=== PATIENT | female | born 1950 | race Caucasian/White ===

== ENCOUNTER 2020-08-31 12:29 | Outpatient (CLI) | payer MEDICARE, SELFPAY ==
--- NOTE | ~2020-08-31 | MR_ITS ---
EXAMINATION: MR lumbar spine wo con DATE: 08/31/2020 13:28 INDICATION: Chronic low back pain. TECHNIQUE: Magnetic resonance imaging (MRI) of the lumbar spine was performed without intravenous con trast. Sequences included sagittal T2-weighted FSE, sagittal T2-weighted FS FSE, sagittal T1-weighted FSE, and axial T2-weighted FSE. COMPARISON: Lumbar spine MRI 09/19/2014 FINDINGS: There is 10 degrees levoscoliosis of lumbar spine. There is 3 mm anterolisthesis of L3 on L 4. There are Schmorl's nodes at most levels. There is mildly decreased disc height at L1-L2 and sever jackie decreased disc height from L2-L3 through L5-S1 with endplate remodeling. The distal spinal cord s ignal intensity is normal. The conus medullaris is at L1. There is a 9.3 cm cyst in left kidney. The following disc levels are specifically discussed: L1-L2: The disc is bulging with superimposed central extrusion. There is mild lateral facet joint ost eoarthritis. There is mild bilateral neural foraminal stenosis. There is mild central canal stenosis. L2-L3: The disc is bulging. There is moderate bilateral facet joint osteoarthritis. There is moderate bilateral neural foraminal stenosis. There is mild central canal stenosis. L3-L4: The disc is bulging and has an annular fissure. There is severe bilateral facet joint osteoart hritis. There is moderate bilateral neural foraminal stenosis. There is mild central canal stenosis w ith posterior decompression. L4-L5: The disc is bulging and has an annular fissure. There is severe bilateral facet joint osteoart hritis. There is mild right and moderate left neural foraminal stenosis. There is mild central canal stenosis with posterior decompression. L5-S1: The disc is bulging and has an annular fissure. There is moderate bilateral facet joint osteoa rthritis. There is mild right and moderate left neural foraminal stenosis. There is mild central lauro l stenosis. IMPRESSION: 1. Severe lumbar spondylosis, worsened from 09/19/2014. Reviewed, dictated and finalized at location A.
== END 2020-08-31 12:30 | disposition home or self-care (01) ==
PROVIDERS: PCP Physician Assistant; Visit Provider Physician Assistant
DX: M47.896 Other spondylosis, lumbar region (principal)
CPT/HCPCS: 72148

== ENCOUNTER 2020-09-24 09:23 | Outpatient (CLI) | payer MEDICARE, SELFPAY ==
--- NOTE | 2020-09-24 09:46 | ECG_ITS ---
Measurements Intervals [place] Rate: 73 P: 60 IN: 207 QRS: -11 QRSD: 86 T: 11 QT: 350 QTc: 386 Interpretive Statements SINUS RHYTHM DELAYED PRECORDIAL R/S TRANSITION BASELINE ARTIFACT- I, II, III, AVL, AVF BORDERLINE ECG Electronically Signed On 09-24-2020 10:24:52 HAND WINDER by Emanuel Mcgowan D.O.
== END 2020-09-24 09:24 | disposition home or self-care (01) ==
PROVIDERS: PCP Physician Assistant; Visit Provider Physician Assistant
DX: Z01.818 Encounter for other preprocedural examination (principal); R94.31 Abnormal electrocardiogram [ECG] [EKG]
CPT/HCPCS: 93005

== ENCOUNTER → 2021-03-28 06:47 | Outpatient (CLI) | payer MEDICARE, SELFPAY ==
[2021-03-28 17:40] LABS: SARS-CoV-2 RNA PCR Negative
== END ==
PROVIDERS: PCP Internal Medicine; Visit Provider Physician Assistant
DX: Z01.812 Encounter for preprocedural laboratory examination (principal); Z20.822 Contact with and (suspected) exposure to COVID-19
CPT/HCPCS: C9803; U0003; U0005

== ENCOUNTER 2022-02-24 10:37 | Emergency (ER) | payer MEDICARE, SELFPAY ==
[2022-02-24 10:45] VITALS: BP 172/90; PULSE 97; RESP 16; TEMP 36.7; O2SAT 98
--- NOTE | 2022-02-24 10:45 | ED.URI ---
HPI - URI/Sore Throat General Chief Complaint: Upper Respiratory Infection Stated Complaint: Sinus pain, cough Time Seen by Provider: 02/24/22 10:46 Source: patient, RN notes reviewed and old records reviewed Mode of arrival: ambulatory Limitations: no limitations History of Present Illness HPI Narrative: 71 year old female who presents to [facility] care with complaints of cough which has been preventing her from sleeping well at night, sinus congestion and drainage for the past 4 days.Patient states that she has been taking her Zyrtec and using her inhalers and taking Coricidin brand cold medications. Patient reports that she has a lot of drainage in the back of her throat that is aggravating her cough, Patient denies any acute shortness of breath, denies any chills or sweat or any known fevers. Patient does have history of seasonal allergies and asthma. Patient has had COVID vaccinations and flu shot. MD elicited complaint: cough, rhinorrhea and nasal congestion Onset (ago): day(s) (4) Treatments prior to arrival: cold medicine Related Data Home Medications Medication Instructions Recorded Confirmed aspirin 81 mg tablet,delayed 81 mg PO DAILY 06/18/20 02/24/22 release cetirizine 10 mg capsule 10 mg PO DAILY 06/18/20 02/24/22 cranberry extract 500 mg capsule 500 mg PO BID 03/19/21 02/24/22 Black Elderberry 50 mg PO .qd 10/02/21 02/24/22 calcium carbonate 200 mg calcium 200 mg PO BID 02/21/22 02/24/22 (500 mg) chewable tablet glucosamine sulfate 1,000 mg 1,500 mg PO BID cap 02/21/22 02/24/22 capsule oasis eye drops 1 ea EACH EYE TID 02/21/22 02/24/22 acetaminophen [Tylenol Extra 500 mg PO DAILY 02/24/22 02/24/22 Strength] vit C,H-Fn-hnnzt-lutein-zeaxan 1 cap PO BID 02/24/22 02/24/22 [PreserVision AREDS-2] Allergies Allergy/AdvReac Type Severity Reaction Status Date / Time codeine Allergy Mild Nausea Verified 02/24/22 10:51 Review of Systems Review of Systems: CONSTITUTIONAL: Denies fever, chills, or sweats. EYES: Denies visual changes, redness, or discharge. ENT: Positive for rhinorrhea, congestion, no sore throat, or otalgia. CARDIOVASCULAR: Denies chest pain, palpitations, or edema. RESPIRATORY: Positive for cough mild dyspnea with activity. GASTROINTESTINAL: Denies abdominal pain, nausea, vomiting, or diarrhea. GENITOURINARY: Denies dysuria or hematuria. SKIN: Denies rash or itching. MUSCULOSKELETAL: Denies back pain, joint pain, or myalgia. NEUROLOGIC: Denies headache, numbness, or weakness. PSYCHIATRIC: Denies anxiety or depression. All systems reviewed & are unremarkable except as noted in HPI and below PMFSH Past Medical History Medical History Arthritis Chronic back pain CVA (cerebral vascular accident) History of adverse reaction to anesthesia Hypercholesteremia Hypertension Kidney disease Postmenopausal Seasonal allergies Vision abnormalities Surgical History Surgical History H/O Spinal surgery Bulging disc H/O: hysterectomy History of cholecystectomy History of orthopedic surgery Right knee Hx of tonsillectomy Family History Family History Grandparent Hypertension Father Family history of chronic obstructive pulmonary disease Malignant neoplasm of prostate Family history of emphysema Patient's father is Other Arthritis Blood clot in vein Cerebrovascular accident Social History Social History Smoking status: Never smoker Second hand tobacco smoke exposure: No Alcohol intake: current Alcohol use details: Occasional Substance use: never Comments At time of signature, agree with nursing past medical, surgical, social and family history. There is no relevant family history pertinent to the presenting complaint
== END 2022-02-24 11:14 | disposition home or self-care (01) ==
PROVIDERS: Emergency Provider Registered Nurse; PCP Physician Assistant
DX: J06.9 Acute upper respiratory infection, unspecified (principal); M19.90 Unspecified osteoarthritis, unspecified site; E78.00 Pure hypercholesterolemia, unspecified; I10 Essential (primary) hypertension; Z86.73 Personal history of transient ischemic attack (TIA), and cerebral infarction without residual deficits
CPT/HCPCS: 99213; G0463

== ENCOUNTER → 2022-03-28 14:35 | Outpatient (CLI) | payer MEDICARE, SELFPAY ==
--- NOTE | ~2022-03-28 | MR_ITS ---
EXAMINATION: MR lumbar spine wo con DATE: 03/28/2022 15:07 INDICATION: Lumbar radiculopathy TECHNIQUE: Magnetic resonance imaging (MRI) of the lumbar spine was performed without intravenous con trast. Sequences included sagittal T2-weighted FSE, sagittal T2-weighted FS FSE, sagittal T1-weighted FSE, and axial T2-weighted FSE. COMPARISON: 08/31/2020 FINDINGS: Again seen is 10 degrees lumbar levoscoliosis. Straightening of the normal lumbar lordosis. Postopera tive change of prior L2-L4 laminectomies. 2 mm anterolisthesis L3 on L4. 3 mm retrolisthesis L5 on S1 . Vertebral body heights are normal with multiple Schmorl's nodes. Severe disc height loss with assoc iated fibrofatty and fibrovascular degenerative endplate changes at L2-L3 through L5-S1. Moderate dis c height loss at T10-T11 through L1-L2. The conus medullaris terminates at L1-L2. There is normal sig nal in the caudal spinal cord. 11 cm T2 hyperintense cyst at the upper pole the left kidney. Paravert ebral soft tissues are otherwise unremarkable. The following disc levels are specifically discussed: T12-L1: Disc is mildly bulging. There is mild bilateral facet joint osteoarthritis. There is no neura l foraminal stenosis. There is mild central canal stenosis. L1-L2: Disc is bulging with superimposed annular fissure and small central disc extrusion with disc m aterial extending up to 4 mm caudal to the level of the superior endplate of L2. There is mild left a nd moderate right facet joint osteoarthritis. There is mild bilateral neural foraminal stenosis. Ther e is moderate to severe central canal stenosis with no discernible CSF signal surrounding the cauda e quina. L2-L3: Annular fissure with broad-based disc extrusion extending from foraminal zone to foraminal zon e with disc material extending a few millimeters cephalad and caudal to the level of the endplates. T here is moderate bilateral facet joint osteoarthritis. There is moderate bilateral neural foraminal s tenosis. There is mild central canal stenosis with posterior decompression. L3-L4: Annular fissure with disc extrusion extending from foraminal zone to foraminal zone with disc material extending up to 4 mm cephalad to the level of the inferior endplate of L3. There is severe b ilateral facet joint osteoarthritis. There is moderate bilateral neural foraminal stenosis. There is mild central canal stenosis with posterior decompression. L4-L5: Disc is mildly bulging with annular fissure and small central disc extrusion. There is severe bilateral facet joint osteoarthritis. There is moderate left and mild to moderate right neural forami nal stenosis. There is mild central canal stenosis with posterior decompression. L5-S1: Disc is mildly bulging with annular fissure. There is moderate bilateral facet joint osteoarth ritis. There is mild right and moderate left neural foraminal stenosis. There is mild central canal s tenosis. IMPRESSION: 1. Minimal progression of severe lumbar spondylosis with chronic L2-L4 laminectomies. Reviewed, dictated and finalized at location B. IMPRESSION: 1. Minimal progression of severe lumbar spondylosis with chronic L2-L4 laminect omies.
--- NOTE | ~2022-03-28 | XR_ITS ---
XR knee RT 2V 03/28/2022 15:17 Indication: Right knee pain Procedure: 2 views right knee Comparison: 06/18/2020 Findings: There is a right total knee arthroplasty. Prosthesis well seated. No acute fracture or trau matic malalignment. No significant joint effusion. Impression: 1: No acute fracture. Reviewed, dictated and finalized at location A. Impression: 1: No acute fracture.
--- NOTE | ~2022-03-28 | XR_ITS ---
XR knee LT 2V 03/28/2022 15:17 Indication: Left knee pain Procedure: 2 views left knee Comparison: 06/18/2020 Findings: There is mild osteoarthritis of the left knee. No fracture, subluxation or dislocation. No significant joint effusion. No foreign bodies. Impression: 1: Mild osteoarthritis of the left knee. Reviewed, dictated and finalized at location A. Impression: 1: Mild osteoarthritis of the left knee.
== END ==
PROVIDERS: PCP Internal Medicine; Visit Provider Nurse Practitioner Family
DX: M47.27 Other spondylosis with radiculopathy, lumbosacral region (principal); M48.07 Spinal stenosis, lumbosacral region; M17.0 Bilateral primary osteoarthritis of knee
CPT/HCPCS: 72148; 73560

== ENCOUNTER 2022-07-25 13:07 | Outpatient (CLI) | payer MEDICARE, SELFPAY ==
--- NOTE | 2022-07-25 13:26 | ECG_ITS ---
Measurements Intervals [place] Rate: 77 P: 63 MI: 206 QRS: -18 QRSD: 120 T: 37 QT: 359 QTc: 409 Interpretive Statements SINUS RHYTHM BORDERLINE AV CONDUCTION DELAY BORDERLINE ECG COMPARED TO ECG 09/24/2020 09:50:35 NO SIGNIFICANT CHANGES Electronically Signed On 07-25-2022 13:47:40 CDT by Emanuel Mcgowan D.O.
== END 2022-07-25 13:08 | disposition home or self-care (01) ==
LOC: ANHCARD 13:09
PROVIDERS: PCP Physician Assistant; Visit Provider Neurological Surgery
DX: Z01.818 Encounter for other preprocedural examination (principal); I45.9 Conduction disorder, unspecified
CPT/HCPCS: 93005

== ENCOUNTER 2022-08-20 08:34 | Outpatient (CLI) | payer MEDICARE, SELFPAY ==
[2022-08-20 09:18] LABS: Anion Gap 7 mmol/L (8-16); Blood Urea Nitrogen 21 mg/dL (7-17); Calcium 9.7 mg/dL (8.4-10.2); Carbon Dioxide 28 mmol/L (22-30); Chloride 100 mmol/L (98-107); Estimated Glomerular Filt Rate 44; Glucose 112 mg/dL (65-110); Potassium 5.2 mmol/L (3.4-5.0); Sodium 135 mmol/L (137-145)
[2022-08-20 09:33] LABS: Partial Thromboplastin Time 27.5 SECONDS (22.3-36.8)
== END 2022-08-20 08:35 | disposition home or self-care (01) ==
LOC: ANHSURGERY 08:37
PROVIDERS: Anesthesiology; PCP Physician Assistant; Visit Provider Neurological Surgery
DX: M48.00 Spinal stenosis, site unspecified (principal); N28.9 Disorder of kidney and ureter, unspecified; Z01.818 Encounter for other preprocedural examination
CPT/HCPCS: 36415; 80048; 85610; 85730; 86850; 86900; 86901

== ENCOUNTER 2022-08-25 01:45 | Day surgery (SDC) | payer MEDICARE, SELFPAY ==
[2022-08-13 09:48] VITALS: BMI 31.2
--- NOTE | 2022-08-13 10:20 | PC.NURSE ---
Report to the Outpatient Waiting Room, entrance under the green pavilion located off [facility], at time __10:30AM on date __08/25/22 . OR Time: _12:30PM . Time changes happen often and if your time is changed the preop area will call you the afternoon before. - You and your visitor will be asked to self-screen and do not enter if you have any COVID symptoms. - We encourage only one visitor and NO visitors under age 16 are allowed at this time. Your visitor will receive communication by the phone number that is given day of service. - The patient visitor is requested to social distance or may leave the building when not with patient due to restrictions. - A mask is required within the hospital. Patients may have clear liquids (water, carbonated beverages, clear teas, apple juice) until 3 hours prior to surgery with a maximum of 20 ounces. - No food from midnight until time of surgery Take the following medications with a SIP of water the morning of surgery: __AMLODIPINE, SYMBICORT INH, ALBUTEROL INHALER NEEDED Medications to discontinue per physician ___HOLD ASPIRIN AND ALL VITAMINS/SUPPLEMENTS 7 DAYS PRE-OP PER DR PEÑA/FELIPA PT Date to take last dose____08/18/22 Please no make-up, nail english, hairspray, perfume, deodorant, or body powder the day of surgery. No jewelry (including any body piercings) or valuables the day of surgery, leave them at home. Please take a shower or bath the night before, or the morning of, surgery with an antibacterial soap. Wear comfortable, loose fitting clothing. Children are encouraged to wear pajamas. - Jewelry must be removed prior to entering the operating room. Rings and piercings that are not removed may be cut off. - The hospital will not accept responsibility for valuables. - Please leave all valuables, including medications, at home the day of surgery. If you are going home after surgery, a licensed local driver must drive you home. - NO public transportation without another adult. - We recommend that an adult stay with you for 24 hours following discharge. - We also recommend that you do not drive, make important decision, drink alcoholic beverages, or take any drugs that were not prescribed by your health care provider for at least 24 hours after your discharge time. For Pediatric surgeries, we recommend two adults accompany the child home. Follow any additional instructions given to you from your surgeon. If you or anyone in your household have experienced Covid symptoms in the past week, please notify your surgeon or the nurse liaison at the phone number below for possible testing. Telephone instructions given to ___PATIENT and asked if any additional questions and then verbalized understanding. Patient advised to call surgeon office or pre surgery nurse liaison [phone] if any additional questions.
[2022-08-25] VITALS (8 sets, daily range): BP systolic 132–154; BP diastolic 57–79; PULSE 63–87; RESP 12–17; TEMP 36.3–36.7; O2SAT 100; BMI 31.6
--- NOTE | ~2022-08-25 | XR_ITS ---
XR fluoroscopy no charge L1-L2 lumbar laminectomy TECHNIQUE: Fluoroscopy used during L1-L2 lumbar laminectomy performed by [Todd Pina MD] on 08/25/2022. 5 seconds of fluoroscopy. with 2 fluoroscopic images captured. ] FINDINGS: Correlate with procedure note. IMPRESSION: Fluoroscopy used during L1-L2 lumbar laminectomy. Reviewed, dictated and finalized at location B.
--- NOTE | 2022-08-25 09:41 | WPDANESEPPF ---
Anes - Initial Pre Proc Eval Procedure: Operation Date: 08/25/22 12:30 Proposed Procedures p L1-2 Lumbar Laminectomy - Todd Pina MD Date/Time: 08/25/22 09:41 Surgeon: Todd Pina MD Pre Op Diagnosis: L1-2 stenosis Patient Data Age: 72 Gender: F Height: 1.6 m Weight: 80 kg Allergies Allergy/AdvReac Type Severity Reaction Status Date / Time codeine AdvReac Mild Nausea Verified 08/25/22 10:51 Home Medications Medication Instructions Recorded Confirmed Type fluticasone propionate 50 1 spray intranasal DAILY #18.2 mL 10/19/19 08/13/22 Rx mcg/actuation nasal spray,suspension (Flonase Allergy Relief) albuterol sulfate 90 mcg/actuation 2 puff inhalation QID PRN 11/22/19 08/13/22 Rx aerosol inhaler (Ventolin HFA) shortness of breath or wheezing #8.5 grams budesonide-formoterol HFA 160 2 puff inhalation Q12H #10.2 grams 11/23/19 08/13/22 Rx mcg-4.5 mcg/actuation aerosol inhaler (Symbicort) aspirin 81 mg tablet,delayed 81 mg PO DAILY 06/18/20 08/25/22 History release (Adult Aspirin Regimen) cetirizine 10 mg capsule 10 mg PO DAILY 06/18/20 08/13/22 History cranberry extract 500 mg capsule 500 mg PO DAILY 03/19/21 08/25/22 History (Cranberry Concentrate) glucosamine sulfate 1,000 mg 1,500 mg PO EVERY OTHER DAY 02/21/22 08/13/22 History capsule oasis eye drops 1 ea EACH EYE BID 02/21/22 08/13/22 History acetaminophen 500 mg capsule 500 mg PO TID PRN Pain 02/24/22 08/13/22 History vit C 250 mg-vit E 90 mg-zinc 40 1 cap PO BID 02/24/22 08/25/22 History mg-copper 1 as-rcalum-washsq capsule (PreserVision AREDS-2) amlodipine 5 mg tablet 5 mg PO DAILY #90 tabs 06/30/22 08/25/22 Rx atorvastatin 10 mg tablet 10 mg PO DAILY #90 tabs 06/30/22 08/13/22 Rx lisinopril 40 mg tablet 40 mg PO DAILY #90 tabs 06/30/22 08/13/22 Rx famotidine 20 mg tablet 20 mg PO BID 08/13/22 08/13/22 History vitamin C 45 mg-zinc citrate 3.75 1 tablet PO DAILY 08/13/22 08/25/22 History mg-elderberry 50 mg chewable tablet ([employer]) ECG: Date of Service: 07/25/22 Procedure(s): CA 12 lead EKG Accession Number(s): [id number] cc: ~ ? Measurements Intervals? [place]? Rate: ? 77 ? P:? 63 ME: ? 206? QRS:? -18 QRSD: ? 120? T:? 37 QT: ? 359? QTc:? 409? Interpretive Statements SINUS RHYTHM BORDERLINE AV CONDUCTION DELAY BORDERLINE ECG COMPARED TO ECG 09/24/2020 09:50:35 NO SIGNIFICANT CHANGES Electronically Signed On 07-25-2022 13:47:40 CDT by Emanuel Mcgowan D.O. Patient hx anesthesia problems: none Family hx anesthesia problems: none Results Review: All pre-operative results and documents have been reviewed as part of the pre-operative evaluation. [facility] Past Medical History Medical History (Updated 08/25/22 @ 09:42 by Orville Correa MD) Arthritis Asthma Chronic back pain CVA (cerebral vascular accident) History of adverse reaction to anesthesia Hypercholesteremia Hyperlipidemia Hypertension Kidney disease Obesity (BMI 30-39.9) Postmenopausal Seasonal allergies Vision abnormalities Surgical History Surgical History H/O Spinal surgery Bulging disc H/O: hysterectomy History of cholecystectomy History of orthopedic surgery Right knee Hx of tonsillectomy Family History Family History Grandparent Hypertension Father Family history of chronic obstructive pulmonary disease Malignant neoplasm of prostate Family history of emphysema Patient's father is Other Arthritis Blood clot in vein Cerebrovascular accident Social Hi
[2022-08-25] MEDS: LACTATED RINGERS 1,000 ML 30 ML IV CONT (11:55)
--- NOTE | 2022-08-25 12:30 | PM.IMHP ---
H&P: HPI History of Present Illness Date/Time: 08/25/22 12:30 Chief Complaint: Back and leg pain, claudication Narrative: Faiza is a 72-year-old female with claudicatory symptoms in her back and lower extremities who presents now for decompression at L1-2. She has not changed appreciably since we saw her last. She does not have consistent numbness or weakness of either lower extremity. She is not having any bowel or bladder difficulty. Review of Systems Review of Systems: Patient denies shortness of breath, cough, fever, chills, nausea, vomiting, weight loss, weight gain, chest pain, dysuria. She has back and leg pain as above. Her review of systems otherwise negative on 12 systems except as noted elsewhere. [facility] Past Medical History Medical History (Updated 08/25/22 @ 12:31 by Todd Pina MD) Arthritis Asthma Chronic back pain CVA (cerebral vascular accident) History of adverse reaction to anesthesia Hypercholesteremia Hyperlipidemia Hypertension Kidney disease Obesity (BMI 30-39.9) Postmenopausal Seasonal allergies Vision abnormalities Surgical History Surgical History H/O Spinal surgery Bulging disc H/O: hysterectomy History of cholecystectomy History of orthopedic surgery Right knee Hx of tonsillectomy Family History Family History Grandparent Hypertension Father Family history of chronic obstructive pulmonary disease Malignant neoplasm of prostate Family history of emphysema Patient's father is Other Arthritis Blood clot in vein Cerebrovascular accident Social History Social History Smoking status: Never smoker Second hand tobacco smoke exposure: No Alcohol intake: current Alcohol use details: Occasional Substance use: never Living arrangements: with family Additional living arrangements comments: [facility] Spiritual care concerns: No Meds Home Medications and Allergies Home Medications Medication Instructions Recorded Confirmed Type fluticasone propionate 50 1 spray intranasal DAILY #18.2 mL 10/19/19 08/13/22 Rx mcg/actuation nasal spray,suspension (Flonase Allergy Relief) albuterol sulfate 90 mcg/actuation 2 puff inhalation QID PRN 11/22/19 08/13/22 Rx aerosol inhaler (Ventolin HFA) shortness of breath or wheezing #8.5 grams budesonide-formoterol HFA 160 2 puff inhalation Q12H #10.2 grams 11/23/19 08/13/22 Rx mcg-4.5 mcg/actuation aerosol inhaler (Symbicort) aspirin 81 mg tablet,delayed 81 mg PO DAILY 06/18/20 08/25/22 History release (Adult Aspirin Regimen) cetirizine 10 mg capsule 10 mg PO DAILY 06/18/20 08/13/22 History cranberry extract 500 mg capsule 500 mg PO DAILY 03/19/21 08/25/22 History (Cranberry Concentrate) glucosamine sulfate 1,000 mg 1,500 mg PO EVERY OTHER DAY 02/21/22 08/13/22 History capsule oasis eye drops 1 ea EACH EYE BID 02/21/22 08/13/22 History acetaminophen 500 mg capsule 500 mg PO TID PRN Pain 02/24/22 08/13/22 History vit C 250 mg-vit E 90 mg-zinc 40 1 cap PO BID 02/24/22 08/25/22 History mg-copper 1 ly-bueede-rslfnq capsule (PreserVision AREDS-2) amlodipine 5 mg tablet 5 mg PO DAILY #90 tabs 06/30/22 08/25/22 Rx atorvastatin 10 mg tablet 10 mg PO DAILY #90 tabs 06/30/22 08/13/22 Rx lisinopril 40 mg tablet 40 mg PO DAILY #90 tabs 06/30/22 08/13/22 Rx famotidine 20 mg tablet 20 mg PO BID 08/13/22 08/13/22 History vitamin C 45 mg-zinc citrate 3.75 1 tablet PO DAILY 08/13/22 08/25/22 History mg-elderberry 50 mg chewable tablet ([employer]) Allergies Allergy/AdvReac Type Severity Reaction Status Date / Time codeine AdvReac Mild Nausea Verified 08/25/22 10:51 Vital Signs Vital Signs - 24 hr 08/25/22 10:45 Temperature 98.1 F Pulse Rate 83 Respiratory Rate 16
--- NOTE | 2022-08-25 12:32 | WPDHPUPDATE1 ---
History and Physical Update Update Date/Time: 08/25/22 12:32 History and Physical has been reviewed, including an updated exam of the patient. There are NO changes in the patient's condition. Risks, benefits, and alternatives have been discussed and questions answered. Patient agrees to proceed with procedure.
[2022-08-25] MEDS: ceFAZolin 2 GM/D5W 50 ML 2 GM/50 ML BAG IVPB (12:38)
[2022-08-25] MEDS: BUPIVACAINE/EPINEPHRINE 0.25% 50 ML VIAL 10 ML INFILTRATE (13:18)
--- NOTE | 2022-08-25 13:49 | P.OP_ITS ---
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 Description of Procedure Faiza was brought to the operating room in the supine position, was sedated, intubated and placed under general anesthesia in routine fashion. She was then turned into the prone position on a Salas frame. Therefore operation or back was examined, marked for incision, prepped and draped in routine sterile fashion. Incision was marked over the L1 and L2 spinous processes in the midline. This area was injected with 0.5% lidocaine with [id number] epinephrine. Intravenous antibiotics given prior to incision. Incision was made with a 10 blade scalpel down to the lumbodorsal fascia. A subperiosteal dissection of the muscle soft tissue away from spinous process and lamina was performed with a subperiosteal elevator and Bovie cautery. A verifying x-rays obtained to verify the level of operation. The L1 spinous process was removed with the Sahra rongeur. A Midas Jorden drill with the acorn bit was used to remove lamina in the midline and to the soft contents of the canal were encountered. A curved curette was used to define a plane and Kerrison punches were used to remove bone and ligament in the midline until the dura was uncovered. In the lateral epidural space a curved curette was used to define a plane and Kerrison punches were used to remove overgrown bone ligament. This was done until a dental instrument could be placed in the lateral recess to confirm microdecompression and feel each pedicle and foramen. The wound was then copiously irrigated with bacitracin irrigation all bleeding stopped with bipolar and Bovie cautery and Gelfoam thrombin powder. The wound was then closed in layered fashion with 2-0 Vicryl interrupted sutures in the lumbodorsal fascia and Erik's layer. 3-0 Vicryl buried interrupted sutures were placed in the dermis and the skin was closed with a running 4-0 Monocryl subcuticular stitch and dressed with Dermabond and a Telfa and Tegaderm dressing. The patient was then allowed to wake up in the operating room was taken to the recovery room in stable condition. There were no immediate complications of this operation. All counts were reported correct at the end of the case. Blood loss was 10 cc. The patient was neurologically at her baseline postoperatively. Estimated Blood Loss 10 IV Fluids 1,000 Complications None Disposition PACU
[2022-08-25] MEDS: fentaNYL CITRATE INJ (*CRX) 100 MCG/2 ML VIAL 25 MCG IV PUSH ×2 (14:23→14:26)
== END 2022-08-25 16:00 | disposition home or self-care (01) ==
PROVIDERS: PCP Physician Assistant; Visit Provider Neurological Surgery
PROC: (CPT 63005; principal; 2022-08-25 12:30)
DX: M48.062 Spinal stenosis, lumbar region with neurogenic claudication (principal); I10 Essential (primary) hypertension; E78.5 Hyperlipidemia, unspecified; E78.00 Pure hypercholesterolemia, unspecified; J45.909 Unspecified asthma, uncomplicated; Z86.73 Personal history of transient ischemic attack (TIA), and cerebral infarction without residual deficits; E66.9 Obesity, unspecified; Z68.31 Body mass index [BMI] 31.0-31.9, adult; Z79.51 Long term (current) use of inhaled steroids
CPT/HCPCS: 63030; 36415; 80048; 85610; 85730; 86850; 86900; 86901; 99199; J0690; J1100; J2405; J2704; J3010; J7120

== ENCOUNTER 2023-06-09 00:45 | Day surgery (SDC) | payer MEDICARE, SELFPAY ==
[2023-06-01 10:16] VITALS: BMI 31.0
[2023-06-09 08:04] VITALS: BP 178/74; PULSE 85; RESP 18; TEMP 36.1; O2SAT 100
--- NOTE | 2023-06-09 08:12 | WPDANESEPPF ---
Anes - Initial Pre Proc Eval Procedure: Operation Date: 06/09/23 09:15 Proposed Procedures p Colonoscopy - Crispin Arevalo MD Date/Time: 06/09/23 08:12 Surgeon: Crispin Arevalo MD Pre Op Diagnosis: other fecal abnormalities Patient Data Age: 73 Gender: F Height: 1.6 m Weight: 79.6 kg Last Vital Signs Temp 36.1 C L 06/09/23 08:04 Pulse 85 06/09/23 08:04 Resp 18 06/09/23 08:04 BP 178/74 H 06/09/23 08:04 Pulse Ox 100 06/09/23 08:04 O2 Del Method Room Air 06/09/23 08:04 Allergies Allergy/AdvReac Type Severity Reaction Status Date / Time codeine AdvReac Mild Nausea Verified 06/09/23 08:01 Home Medications Medication Instructions Recorded Confirmed Type fluticasone propionate 50 1 spray intranasal DAILY #18.2 mL 10/19/19 06/01/23 Rx mcg/actuation nasal spray,suspension (Flonase Allergy Relief) albuterol sulfate 90 mcg/actuation 2 puff inhalation QID PRN 11/22/19 06/01/23 Rx aerosol inhaler (Ventolin HFA) shortness of breath or wheezing #8.5 grams budesonide-formoterol HFA 160 2 puff inhalation Q12H #10.2 grams 11/23/19 06/01/23 Rx mcg-4.5 mcg/actuation aerosol inhaler (Symbicort) aspirin 81 mg tablet,delayed 81 mg PO DAILY 06/18/20 06/01/23 History release (Adult Aspirin Regimen) cetirizine 10 mg capsule 10 mg PO DAILY 06/18/20 06/01/23 History cranberry extract 500 mg capsule 500 mg PO DAILY 03/19/21 06/01/23 History (Cranberry Concentrate) oasis eye drops 1 ea EACH EYE BID 02/21/22 06/01/23 History acetaminophen 500 mg capsule 500 mg PO TID PRN Pain 02/24/22 06/01/23 History vit C 250 mg-vit E 90 mg-zinc 40 1 cap PO BID 02/24/22 06/01/23 History mg-copper 1 [id number]-aiceur capsule (PreserVision AREDS-2) amlodipine 5 mg tablet 5 mg PO DAILY #90 tabs 06/30/22 06/01/23 Rx atorvastatin 10 mg tablet 10 mg PO DAILY #90 tabs 06/30/22 06/01/23 Rx famotidine 20 mg tablet 20 mg PO BID 08/13/22 06/01/23 History vitamin C 45 mg-zinc citrate 3.75 1 tablet PO DAILY 08/13/22 06/01/23 History mg-elderberry 50 mg chewable tablet ([employer]) hydrocodone 5 mg-acetaminophen 325 1 tablet PO Q8H PRN Pain 04/22/23 06/01/23 History mg tablet lisinopril 40 mg tablet 40 mg PO DAILY #90 tabs 05/07/23 06/01/23 Rx sodium,potassium,mag sulfates 17.5 See Rx Instructions PO .COMPLEX 05/11/23 Rx gram-3.13 gram-1.6 gram oral soln #354 mL (Suprep Bowel Prep Kit) docusate sodium 100 mg capsule 100 mg PO BID 06/01/23 06/01/23 History (Colace) Patient hx anesthesia problems: post op nausea/vomiting Family hx anesthesia problems: none Results Review: All pre-operative results and documents have been reviewed as part of the pre-operative evaluation. [facility] Past Medical History Medical History Arthritis Asthma Chronic back pain CVA (cerebral vascular accident) History of adverse reaction to anesthesia Hypercholesteremia Hyperlipidemia Hypertension Kidney disease Obesity (BMI 30-39.9) Postmenopausal Seasonal allergies Vision abnormalities Surgical History Surgical History H/O Spinal surgery Bulging disc H/O: hysterectomy History of cholecystectomy History of orthopedic surgery Right knee Hx of tonsillectomy Family History Family History Grandparent Hypertension Father Family history of chronic obstructive pulmonary disease Malignant neoplasm of prostate Family history of emphysema Patient's father is Other Arthritis Blood clot in vein Cerebrovascular accident Social History Social History Smoking status: Never smoker Second hand tobacco smoke exposure: No Alcohol intake: current Alcohol use details: Occasional Substance use: never Lack of Transporta
[2023-06-09] MEDS: LACTATED RINGERS 1,000 ML 150 ML IV CONT (08:15)
--- NOTE | 2023-06-09 08:52 | PM.HPGS ---
History of Present Illness History of Present Illness Consent: Risks, benefits, and alternatives have been discussed and questions answered. Patient agrees to proceed with procedure. Chief complaint: positive cologuard test Narrative: Faiza Castillo is a 73 year old female Presents for screening colonoscopy. Patient recently had a Cologuard test that was found to be positive. Patient reports her current weight appetite and bowel movements are normal. Patient denies abdominal pain. She has had no bleeding. Family history noncontributory. Review of Systems Review of Systems: Review of systems noncontributory. [facility] Past Medical History Medical History Arthritis Asthma Chronic back pain CVA (cerebral vascular accident) History of adverse reaction to anesthesia Hypercholesteremia Hyperlipidemia Hypertension Kidney disease Obesity (BMI 30-39.9) Postmenopausal Seasonal allergies Vision abnormalities Surgical History Surgical History H/O Spinal surgery Bulging disc H/O: hysterectomy History of cholecystectomy History of orthopedic surgery Right knee Hx of tonsillectomy Family History Family History Grandparent Hypertension Father Family history of chronic obstructive pulmonary disease Malignant neoplasm of prostate Family history of emphysema Patient's father is Other Arthritis Blood clot in vein Cerebrovascular accident Social History Social History Smoking status: Never smoker Second hand tobacco smoke exposure: No Alcohol intake: current Alcohol use details: Occasional Substance use: never Lack of Transportation: No Lack of Food: Never True Current Housing: I Have Housing Concerned About Future Housing: No Difficulty Paying Gas/Electric Bills: No Difficulty Paying for Meds: No Currently Unemployed: No Education: Bachelor's Degree Difficulty w/ Childcare or Family Care: No Living arrangements: with family Additional living arrangements comments: [facility] Gender identity (if verbalized by the patient): Female Spiritual care concerns: No Meds Home Medications and Allergies Home Medications Medication Instructions Recorded Confirmed Type fluticasone propionate 50 1 spray intranasal DAILY #18.2 mL 10/19/19 06/01/23 Rx mcg/actuation nasal spray,suspension (Flonase Allergy Relief) albuterol sulfate 90 mcg/actuation 2 puff inhalation QID PRN 11/22/19 06/01/23 Rx aerosol inhaler (Ventolin HFA) shortness of breath or wheezing #8.5 grams budesonide-formoterol HFA 160 2 puff inhalation Q12H #10.2 grams 11/23/19 06/01/23 Rx mcg-4.5 mcg/actuation aerosol inhaler (Symbicort) aspirin 81 mg tablet,delayed 81 mg PO DAILY 06/18/20 06/01/23 History release (Adult Aspirin Regimen) cetirizine 10 mg capsule 10 mg PO DAILY 06/18/20 06/01/23 History cranberry extract 500 mg capsule 500 mg PO DAILY 03/19/21 06/01/23 History (Cranberry Concentrate) oasis eye drops 1 ea EACH EYE BID 02/21/22 06/01/23 History acetaminophen 500 mg capsule 500 mg PO TID PRN Pain 02/24/22 06/01/23 History vit C 250 mg-vit E 90 mg-zinc 40 1 cap PO BID 02/24/22 06/01/23 History mg-copper 1 [id number] capsule (PreserVision AREDS-2) amlodipine 5 mg tablet 5 mg PO DAILY #90 tabs 06/30/22 06/01/23 Rx atorvastatin 10 mg tablet 10 mg PO DAILY #90 tabs 06/30/22 06/01/23 Rx famotidine 20 mg tablet 20 mg PO BID 08/13/22 06/01/23 History vitamin C 45 mg-zinc citrate 3.75 1 tablet PO DAILY 08/13/22 06/01/23 History mg-elderberry 50 mg chewable tablet ([employer]) hydrocodone 5 mg-acetaminophen 325 1 tablet PO Q8H PRN Pain 04/22/23 06/01/23 History mg tablet lisinopril 40 mg tablet 40
[2023-06-09] MEDS: SIMETHICONE ORAL SUSPENSION 20 MG/0.3 ML 30 ML BOTTLE 0.6 ML IRRIGATION (09:44)
[2023-06-09 09:53] VITALS: BP 128/59; PULSE 72; RESP 19; O2SAT 100
[2023-06-09 10:03] VITALS: BP 128/61; PULSE 67; RESP 20; O2SAT 100
[2023-06-09 10:13] VITALS: BP 130/67; PULSE 65; RESP 18; O2SAT 100
== END 2023-06-09 10:20 | disposition home or self-care (01) ==
PROVIDERS: PCP Physician Assistant; Visit Provider Internal Medicine Gastroenterology
PROC: 0DJD8ZZ Inspection of Lower Intestinal Tract, Via Natural or Artificial Opening Endoscopic (ICD-10-PCS; CPT 45378; principal; 2023-06-09 09:15)
DX: Z12.11 Encounter for screening for malignant neoplasm of colon (principal); R19.5 Other fecal abnormalities; K64.8 Other hemorrhoids; K57.30 Diverticulosis of large intestine without perforation or abscess without bleeding; I10 Essential (primary) hypertension; E78.00 Pure hypercholesterolemia, unspecified; J45.909 Unspecified asthma, uncomplicated; Z86.73 Personal history of transient ischemic attack (TIA), and cerebral infarction without residual deficits; Z79.51 Long term (current) use of inhaled steroids; Z79.82 Long term (current) use of aspirin; E66.9 Obesity, unspecified; Z68.31 Body mass index [BMI] 31.0-31.9, adult
CPT/HCPCS: G0121; J2704; J7120

== ENCOUNTER → 2023-08-03 11:06 | Outpatient (CLI) | payer MEDICARE, SELFPAY ==
--- NOTE | ~2023-08-03 | DEXA_ITS ---
Bone Density Report Name: ROSSY ACEVEDO Age: 73 Sex: Female Ethnicity: White Date of : 1950 Indication: postmenopausal; screening for osteoporosis; height loss; asthma or emphysema; hysterectomy; Referring Provider: Michele Fraga Study: Bone densitometry was performed. Exam Date: August 03, 2023 Accession number: [id number] Bone Density: Region BMD T-score Z-score Classification AP Spine (L1-L4) 1.283 2.1 4.6 Normal Femoral Neck (Left) 0.862 0.1 2.2 Normal Total Hip (Left) 1.036 0.8 2.6 Normal Femoral Neck (Right) 0.799 -0.4 1.6 Normal Total Hip (Right) 0.910 -0.3 1.5 Normal Total Hip Mean 0.973 0.3 2.1 Normal World Health Organization criteria for BMD impression classify patients as: Normal (T-score at or above -1.0), Osteopenia (T-score between -1.0 and -2.5), or Osteoporosis (T-score at or below -2.5). 10-year Fracture Risk: FRAX not reported because: All T-scores for Spine Total, Hip Total, Femoral Neck at or above -1.0 Previous Exams: Region Exam Age BMD T-score BMD Change BMD Change Date g/cm2 vs Baseline vs Previous AP Spine(L1-L4) 08/03/2023 73 1.283 2.1 -0.005 0.057* 03/23/2017 66 1.226 1.6 -0.062* -0.062* 04/09/2011 60 1.288 2.2 Total Hip(Left) 08/03/2023 73 1.036 0.8 -0.174* -0.188* 03/23/2017 66 1.225 2.3 0.014 0.014 04/09/2011 60 1.211 2.2 Total Hip(Right) 08/03/2023 73 0.910 -0.3 -0.161* -0.142* 03/23/2017 66 1.052 0.9 -0.019 -0.019 04/09/2011 60 1.071 1.1 *Denotes significance at 95% confidence level, LSC for AP Spine = 0.022 g/cm2, LSC for Total Hip = 0.027 g/cm2 Clinical Information Provided by Patient: Has used the following medications: Vitamin D Has the following medical conditions: Asthma or Emphysema, Hysterectomy Patient maximum height was 64 Menopause Age: 41 No regular weight bearing exercise Drinks caffeinated beverages Onset of menses at age 10 Number of children 2 Impression: The patient has normal bone mass. The BMD for the Total Hip(Left) decreased, changing by -0.188 since the last DXA exam. The BMD for the Total Hip(Right) decreased, changing by -0.142 since the last DXA exam. Discussion: BONE DENSITY IS ABOVE THE MINIMUM DESIRABLE LEVEL AT ALL SKELETAL SITES TESTED. This patient?s bone mineral density is above the minimum desirable level (T
== END ==
PROVIDERS: PCP Nurse Practitioner Family; Visit Provider Physician Assistant
DX: Z78.0 Asymptomatic menopausal state (principal)
CPT/HCPCS: 77080

== ENCOUNTER → 2023-10-09 15:12 | Outpatient (CLI) | payer MEDICARE, SELFPAY ==
--- NOTE | ~2023-10-09 | MR_ITS ---
EXAMINATION: MR lumbar spine wo con DATE: 10/09/2023 15:50 INDICATION: Dorsalgia, unspecified. TECHNIQUE: Magnetic resonance imaging (MRI) of the lumbar spine was performed without intravenous con trast. Sequences included sagittal T2-weighted FSE, sagittal T2-weighted FS FSE, sagittal T1-weighted FSE, and axial T2-weighted FSE. COMPARISON: Lumbar spine MRI 03/28/2022 FINDINGS: There is a 10.9 cm cyst in left kidney. There is 9 degrees levocurvature of lumbar spine. T here is mild kyphosis of lumbar spine. There is 3 mm anterolisthesis of L3 on L4. There is mild chron ic anterior wedging of T11-L1 vertebral bodies. There is mildly decreased disc height at T11-T12 and T12-L1, moderately decreased disc height at L1-L2, and severely decreased disc height from L2-L3 thro ugh L5-S1. The distal spinal cord signal intensity is normal. The conus medullaris is at L1-L2. The f ollowing disc levels are specifically discussed: L1-L2: The disc is bulging. There is severe bilateral facet joint osteoarthritis. There is mild bilat eral neural foraminal stenosis. There is mild central canal stenosis with posterior decompression. L2-L3: The disc is bulging and has an annular fissure. There is severe bilateral facet joint osteoart hritis. There is moderate bilateral neural foraminal stenosis. There is mild central canal stenosis w ith posterior decompression. There is severe stenosis of right lateral recess. L3-L4: The disc is bulging and has an annular fissure. There is severe bilateral facet joint osteoart hritis. There is moderate right and mild left neural foraminal stenosis. There is mild central canal stenosis with posterior decompression. L4-L5: This is bulging and has an annular fissure. There is ankylosis of the facet joints with severe hypertrophy. There is mild bilateral neural foraminal stenosis. There is mild central canal stenosis with posterior decompression. L5-S1: The disc is bulging and has an annular fissure. There is moderate bilateral facet joint osteoa rthritis. There is mild bilateral neural foraminal stenosis. There is mild central canal stenosis. IMPRESSION: 1. Severe lumbar spondylosis, stable from 03/28/2022. Reviewed, dictated and finalized at location E. [employer] HELPER
== END ==
PROVIDERS: PCP Internal Medicine; Visit Provider Neurological Surgery
DX: M47.896 Other spondylosis, lumbar region (principal)
CPT/HCPCS: 72148

== ENCOUNTER 2023-10-17 09:46 | Emergency (ER) | payer MEDICARE, SELFPAY ==
--- NOTE | 2023-10-17 09:56 | ED.URI ---
HPI - URI/Sore Throat General Chief Complaint: Upper Respiratory Infection Stated Complaint: Congestion;Cough Time Seen by Provider: 10/17/23 09:56 Source: patient, RN notes reviewed and old records reviewed Mode of arrival: ambulatory Limitations: no limitations History of Present Illness HPI Narrative: 73-year-old female presents to the [facility] with complaints sinus congestion and body aches that started 10 days ago. was prescribed augmentin 10/12, 5 days ago patient reports that she is not any better. Reports she has a history of this every year and normally steroids make her better. Has been using her albuterol inhaler 3 times a day. Has been taking medications as prescribed. Patient reports that she had an appointment with her lung doctor but it was canceled due to her having a cough last week. Reports a history of asthma Related Data Home Medications Medication Instructions Recorded Confirmed aspirin 81 mg tablet,delayed 81 mg PO DAILY 06/18/20 10/17/23 release (Adult Aspirin Regimen) cetirizine 10 mg capsule 10 mg PO DAILY 06/18/20 10/17/23 cranberry extract 500 mg capsule 500 mg PO DAILY 03/19/21 10/17/23 (Cranberry Concentrate) oasis eye drops 1 ea EACH EYE BID 02/21/22 10/17/23 acetaminophen 500 mg capsule 500 mg PO TID PRN Pain 02/24/22 10/17/23 vit C 250 mg-vit E 90 mg-zinc 40 1 cap PO BID 02/24/22 10/17/23 mg-copper 1 [id number] capsule (PreserVision AREDS-2) famotidine 20 mg tablet 20 mg PO BID 08/13/22 10/17/23 vitamin C 45 mg-zinc citrate 3.75 1 tablet PO DAILY 08/13/22 10/17/23 mg-elderberry 50 mg chewable tablet ([employer]) hydrocodone 5 mg-acetaminophen 325 1 tablet PO Q8H PRN Pain 04/22/23 10/17/23 mg tablet docusate sodium 100 mg capsule 100 mg PO BID 06/01/23 10/17/23 (Colace) glucosamine HCl 500 mg tablet 500 mg PO DAILY 06/17/23 10/17/23 Allergies Allergy/AdvReac Type Severity Reaction Status Date / Time codeine AdvReac Mild Nausea Verified 10/17/23 10:18 Review of Systems Review of Systems: All systems reviewed & are unremarkable except as noted in HPI and below Constitutional: Constitutional: Reports no additional constitutional complaints Eyes: Eyes: Reports no additional eye complaints ENT: Reports system reviewed and no additional complaints, except as documented Cardiovascular: Cardiovascular: Reports no additional cardiovascular complaints, Denies chest pain and Denies dyspnea Respiratory: Respiratory: Reports as per HPI, Reports chest congestion, Reports cough and Denies dyspnea Gastrointestinal: Gastrointestinal: Reports no additional gastrointestinal complaints, Denies abdominal pain, Denies nausea and Denies vomiting Musculoskeletal: Musculoskeletal: Reports no additional musculoskeletal complaints Integumentary/Breasts: Skin/Breast: Reports system reviewed and no additional complaints, except as docu Neurologic: Reports system reviewed and no additional complaints, except as documented Psychiatric: Psychiatric: Reports no additional psychiatric complaints Allergic/Immunologic: Allergic/Immunologic: Reports no additional allergic/immunologic complaints PMFSH Past Medical History Medical History Arthritis Asthma Chronic back pain CVA (cerebral vascular accident) History of adverse reaction to anesthesia Hypercholesteremia Hyperlipidemia Hypertension Kidney disease Obesity (BMI 30-39.9) Postmenopausal Seasonal allergies Vision abnormalities Surgical History Surgical History H/O Spinal surgery Bulging disc H/O: hysterectomy History of cholecystectomy History of orthopedic surgery Right knee Hx of tonsillectomy Family History Family History Grandparent Hypertension Father Family history of chronic obstructive pulmonary disease Malignan
[2023-10-17 10:24] VITALS: BP 186/79; PULSE 87; RESP 16; TEMP 36.6; O2SAT 98
== END 2023-10-17 11:05 | disposition home or self-care (01) ==
PROVIDERS: Emergency Provider Nurse Practitioner; PCP Internal Medicine
DX: J40 Bronchitis, not specified as acute or chronic (principal); M19.90 Unspecified osteoarthritis, unspecified site; J45.909 Unspecified asthma, uncomplicated; E78.00 Pure hypercholesterolemia, unspecified; I10 Essential (primary) hypertension; E66.9 Obesity, unspecified; Z68.34 Body mass index [BMI] 34.0-34.9, adult; Z79.82 Long term (current) use of aspirin
CPT/HCPCS: 99213; G0463

== ENCOUNTER → 2023-12-31 12:43 | Outpatient (CLI) | payer MEDICARE, SELFPAY ==
--- NOTE | ~2023-12-31 | CT_ITS ---
EXAMINATION: CT lumbar spine wo con DATE: 12/31/2023 13:37 INDICATION: Sagittal plane imbalance. Low back pain. TECHNIQUE: Computed tomography (CT) of the lumbar spine was performed without intravenous contrast. A utomated exposure control and iterative reconstruction technique were employed. The dose-length produ ct was 817.29 mGy-cm. COMPARISON: Lumbar spine MRI 10/09/2023 FINDINGS: There is 10 degrees levoscoliosis of lumbar spine. There is kyphosis of lumbar spine. There is 3 mm anterolisthesis of L3 on L4. There is mild chronic anterior wedging of L1 vertebral body. Th ere is moderately decreased disc height at T12-L1 and L1-L2 and severely decreased disc height from L 2-L3 through L5-S1. There is a 3 mm stone in right kidney. There are changes of cholecystectomy. Ther e is a cyst in left kidney measuring at least 8 cm. The following disc levels are specifically discus sed: L1-L2: The disc is bulging. There is severe bilateral facet joint osteoarthritis. There is mild bilat eral neural foraminal stenosis. There is no central canal stenosis. L2-L3: The disc is bulging. There is severe bilateral facet joint osteoarthritis. There is mild bilat eral neural foraminal stenosis. There is mild central canal stenosis. There is posterior decompressio n. L3-L4: The disc is bulging. There is severe bilateral facet joint osteoarthritis. There is moderate r ight and mild left neural foraminal stenosis. There is mild central canal stenosis. There is posterio r decompression. L4-L5: The disc is bulging. Interbody fusion is noted. There is severe bilateral facet joint osteoart hritis. There is mild bilateral neural foraminal stenosis. There is mild central canal stenosis. Ther e is posterior decompression. L5-S1: The disc is bulging. There is severe bilateral facet joint osteoarthritis. There is mild right and moderate left neural foraminal stenosis. There is mild central canal stenosis. IMPRESSION: 1. Severe lumbar spondylosis. 2. Lumbar levoscoliosis. Reviewed, dictated and finalized at location A. CH LEAD
--- NOTE | ~2023-12-31 | MR_ITS ---
EXAMINATION: MR cervical spine wo con DATE: 12/31/2023 13:17 INDICATION: Unsteady gait . Sagittal plane imbalance. TECHNIQUE: Magnetic resonance imaging (MRI) of the cervical spine was performed without intravenous c ontrast. COMPARISON: None FINDINGS: Bone alignment is normal. There is mild chronic anterior wedging of T1 vertebral body. Ther e is moderately decreased disc height at C3-C4, severely decreased disc height at C5-C6, and moderate ly decreased disc height at C6-C7. The spinal cord signal intensity is normal. The following disc lev els are specifically discussed: C2-C3: The disc does not extend beyond the endplate margin. There is no uncovertebral joint osteoarth ritis. There is mild right and severe left facet joint osteoarthritis. There is mild left neural fora terence stenosis. There is no central canal stenosis. C3-C4: The disc is bulging. There is severe bilateral uncovertebral joint osteoarthritis. There is mo derate right and severe left facet joint osteoarthritis. There is mild right and severe left neural f oraminal stenosis. There is moderate central canal stenosis with ventral and dorsal indentation of th e spinal cord. C4-C5: There is a central extrusion. There is no uncovertebral joint osteoarthritis. There is mild ri ght and severe left facet joint osteoarthritis. There is no neural foraminal stenosis. There is moder ate central canal stenosis with ventral and dorsal indentation of the spinal cord. C5-C6: The disc is bulging. There is severe bilateral uncovertebral joint osteoarthritis. There is mi ld bilateral facet joint osteoarthritis. There is severe right and mild left neural foraminal stenosi s. There is severe central canal stenosis with ventral and dorsal indentation of the spinal cord. C6-C7: The disc is bulging. There is severe bilateral uncovertebral joint osteoarthritis. There is se neha right and moderate left facet joint osteoarthritis. There is moderate bilateral neural foraminal stenosis. There is severe central canal stenosis with ventral and dorsal indentation of the spinal c ord. C7-T1: There is a central extrusion. There is no uncovertebral joint osteoarthritis. There is severe right and moderate left facet joint osteoarthritis. There is mild bilateral neural foraminal stenosis . There is mild central canal stenosis. IMPRESSION: 1. Severe cervical spondylosis. Reviewed, dictated and finalized at location A. SORTER
== END ==
PROVIDERS: PCP Internal Medicine
DX: R26.89 Other abnormalities of gait and mobility (principal); M43.8X9 Other specified deforming dorsopathies, site unspecified; M47.896 Other spondylosis, lumbar region; M47.892 Other spondylosis, cervical region
CPT/HCPCS: 72131; 72141

== ENCOUNTER 2024-09-20 09:03 | Emergency (ER) | payer MEDICARE, SELFPAY ==
[2024-09-20 09:15] VITALS: BP 163/75; PULSE 86; RESP 15; TEMP 36.8; O2SAT 99
--- NOTE | 2024-09-20 09:24 | ED_ITS ---
HPI - URI/Sore Throat General Chief Complaint: Upper Respiratory Infection Stated Complaint: Cough/Congestion Time Seen by Provider: 09/20/24 09:54 Source: patient and RN notes reviewed Mode of arrival: ambulatory Limitations: no limitations History of Present Illness HPI Narrative: 74-year-old female presents with concern for cough, sinus congestion and drainage for 5 days. She reports trouble sleeping at night due to cough. She denies fever, chills, sweats. Reports she started feeling a he today. She has been using her albuterol inhaler. MD elicited complaint: cough and nasal congestion Related Data Home Medications Medication Instructions Recorded Confirmed aspirin 81 mg tablet,delayed 81 mg PO DAILY 06/18/20 09/20/24 release (Adult Aspirin Regimen) cetirizine 10 mg capsule 10 mg PO DAILY 06/18/20 09/20/24 cranberry extract 500 mg capsule 500 mg PO DAILY 03/19/21 09/20/24 (Cranberry Concentrate) oasis eye drops 1 ea EACH EYE BID 02/21/22 06/22/24 acetaminophen 500 mg capsule 500 mg PO TID PRN Pain 02/24/22 09/20/24 vit C 250 mg-vit E 90 mg-zinc 40 1 cap PO BID 02/24/22 06/22/24 mg-copper 1 [id number] capsule (PreserVision AREDS-2) famotidine 20 mg tablet 20 mg PO BID 08/13/22 09/20/24 vitamin C 45 mg-zinc citrate 3.75 1 tablet PO DAILY 08/13/22 09/20/24 mg-elderberry 50 mg chewable tablet (Wear My Tags) hydrocodone 5 mg-acetaminophen 325 1 tablet PO Q8H PRN Pain 04/22/23 09/20/24 mg tablet docusate sodium 100 mg capsule 100 mg PO BID 06/01/23 09/20/24 (Colace) Allergies Allergy/AdvReac Type Severity Reaction Status Date / Time codeine AdvReac Mild Nausea Verified 09/20/24 09:25 Review of Systems Review of Systems: CONSTITUTIONAL: Denies malaise, chills, sweats, or fever. EYES: Denies visual changes, redness, or discharge. ENT: Reports rhinorrhea, congestion CARDIOVASCULAR: Denies chest pain, palpitations, or edema. RESPIRATORY: Reports cough. Denies dyspnea. GASTROINTESTINAL: Denies abdominal pain, nausea, vomiting, diarrhea SKIN: Denies rash or itching. MUSCULOSKELETAL: Reports myalgia. NEUROLOGIC: Denies headache. All systems reviewed & are unremarkable except as noted in HPI and below PMFSH Past Medical History Medical History Arthritis Asthma Chronic back pain CVA (cerebral vascular accident) History of adverse reaction to anesthesia Hypercholesteremia Hyperlipidemia Hypertension Kidney disease Obesity (BMI 30-39.9) Postmenopausal Seasonal allergies Vision abnormalities Surgical History Surgical History H/O Spinal surgery Bulging disc H/O: hysterectomy History of cholecystectomy History of orthopedic surgery Right knee Hx of tonsillectomy Family History Family History Grandparent Hypertension Father Family history of chronic obstructive pulmonary disease Malignant neoplasm of prostate Family history of emphysema Patient's father is Other Arthritis Blood clot in vein Cerebrovascular accident Social History Social History Smoking status: Never smoker Second hand tobacco smoke exposure: No Alcohol intake: current Alcohol use details: Occasional Substance use: never Do You Feel Safe in your Home?: Yes Lack of Transportation: No Lack of Food: Never True Current Housing: I Have Housing Concerned About Future Housing: No Difficulty Paying Gas/Electric Bills: No Difficulty Paying for Meds: No Currently Unemployed: No Education: Bachelor's Degree Difficulty w/ Childcare or Family Care: No Living arrangements: with family Additional living arrangements comments: [facility] Gender identity (if verbalized by the patient): Female Spiritual care concerns: No Comments At time of signature, agree with nursing past medical, surgical, social and fam robles history. There is no relevant family history pertinent to the presenting complaint Exam Narrative: GENERAL: Well-appearing, well-nourished, and in no acute distress. HEAD: Normocephalic EYES: PERRLA, conjunctivae clear ENT: Nares clear. Mucous membranes moist. TM pearly graves with dull light reflex bilaterally; no tragal tenderness. Oropharynx not erythematous without lesions. Tonsils not enlarged and without exudate, no drooling, no hoarseness, no trismus, uvula midline. NECK: Supple. No lymphadenopathy CHEST: Clear to auscultation, breath sounds equal. No wheezing, rhonchi, rales, or stridor. No respiratory distress, speaks in full sentences. HEART: Regular rate and rhythm. No murmur heard. SKIN: Warm, dry, no rash. NEURO: Alert and oriented x3. PSYCH: Normal mood and affect Course Course Emergency Course: Patient is aware of diagnosis, understands and agrees to treatment plan. Anticipatory guidance given. Patient agrees to follow-up as directed and is aware of reasons to seek care at the emergency department. Portions of this record may have been created with voice recognition software Level of Care: Express Care Visit Vital Signs Vital signs: Vital Signs Temperature 98.3 F 09/20/24 09:15 Pulse Rate 86 09/20/24 09:15 Respiratory Rate 15 09/20/24 09:15 Blood Pressure 163/75 H 09/20/24 09:15 Pulse Oximetry 99 09/20/24 09:15 Oxygen Delivery Room Air 09/20/24 09:15 Temperature 98.3 F 09/20/24 09:15 Pulse Rate 86 09/20/24 09:15 Respiratory Rate 15 09/20/24 09:15 Blood Pressure 163/75 H 09/20/24 09:15 Pulse Oximetry 99 09/20/24 09:15 Oxygen Delivery Room Air 09/20/24 09:15 Reviewed. MDM - URI/Sore Throat MDM Narrative Medical decision making narrative: Differential diagnosis considered: Capellan virus, strep pharyngitis, allergic rhinitis, upper respiratory tract infection, sinusitis, rhinosinusitis, nasopharyngitis. viral pharyngitis, otitis media, otitis externa, pneumonia, bronchitis, viral cough syndrome, viral syndrome, and influenza. Exam findings show no acute concerns or changes; patient is non-toxic appearing and is in no distress. Patient is appropriate for outpatient treatment and follow-up. Lab Data Attestation: I reviewed the patient's lab results. Critical Care Time Critical Care Time Critical Care Time: No Discharge Plan Discharge Clinical Impression: Bronchitis Patient Disposition: Home, Self-Care Condition: Stable Instructions: Antibiotic Form Additional Instructions: Viral illness may last between 7-21 days; antibiotics do not cure viral illness and are NOT recommended at this time. Take medication as prescribed Recommend antihistamine such as Benadryl at night time and Zyrtec or Laura during the day Also, recommend symptomatic treatment includes: rest, fluids, and increase humidity of the air at home. Recommend Acetaminophen as directed on the bottle to reduce fever, pain, headache. Please schedule a follow-up visit with your personal physician for further evaluation and treatment within 3-5days. If your symptoms persist, change or worsen significantly before you can contact your personal physician then please, without delay, go to the emergency department for further evaluation. Prescriptions: New benzonatate 200 mg capsule 200 mg PO TID PRN (Reason: cough) Qty: 14 0RF methylprednisolone [Medrol (Tirso)] 4 mg tablets,dose pack See Rx Instructions .ROUTE .COMPLEX Qty: 21 0RF Rx Instructions: orally per package directions No Action fluticasone propionate [Flonase Allergy Relief] 50 mcg/actuation spray,suspension 1 spray NASAL DAILY Qty: 18.2 0RF Rx Instructions: administer into each nostril takes at hs acetaminophen 500 mg Capsule 500 mg PO TID PRN (Reason: Pain) PreserVision AREDS-2 250-90-40-1 mg Capsule 1 cap PO BID oasis eye drops 1 ea EACH EYE BID aspirin [Adult Aspirin Regimen] 81 mg tablet,delayed release (DR/EC) 81 mg PO DAILY Hold Instructions: Resume on 09/01/22. cetirizine 10 mg capsule 10 mg PO DAILY cranberry extract [Cranberry Concentrate] 500 mg capsule 500 mg PO DAILY Rx Instructions: administer with meals hydrocodone-acetaminophen 5-325 mg tablet 1 tablet PO Q8H PRN (Reason: Pain) famotidine 20 mg Tablet 20 mg PO BID Wear My Tags 45-3.75-50 mg Tablet,Chewable 1 tablet PO DAILY docusate sodium [Colace] 100 mg Capsule 100 mg PO BID albuterol sulfate [Ventolin HFA] 90 mcg/actuation HFA aerosol inhaler 2 puff INHALATION QID PRN (Reason: shortness of breath or wheezing) Qty: 8.5 1RF Symbicort 160-4.5 mcg/actuation HFA aerosol inhaler 2 puff INHALATION Q12H Qty: 10.2 0RF amlodipine 5 mg tablet 5 mg PO DAILY Qty: 90 3RF Rx Instructions: TAKES IN AM atorvastatin 10 mg tablet 10 mg PO DAILY Qty: 90 3RF lisinopril-hydrochlorothiazide 20-12.5 mg tablet 1 tablet PO DAILY Qty: 90 1RF Follow-up/Referrals: PHYSICIAN,DRY STARCH SUPERVISOR [Primary Care Provider] - Time of Disposition: 10:03
[2024-09-20 11:06] LABS: EDCOVIDSCREEN Negative (Negative); EDINFLUASCREEN Negative (Negative); EDINFLUBSCREEN Negative (Negative)
== END 2024-09-20 10:10 | disposition home or self-care (01) ==
PROVIDERS: Emergency Provider Nurse Practitioner
DX: J40 Bronchitis, not specified as acute or chronic (principal); Z20.822 Contact with and (suspected) exposure to COVID-19; J45.909 Unspecified asthma, uncomplicated; I10 Essential (primary) hypertension; E78.00 Pure hypercholesterolemia, unspecified; E78.5 Hyperlipidemia, unspecified; M19.90 Unspecified osteoarthritis, unspecified site; E66.9 Obesity, unspecified; Z68.32 Body mass index [BMI] 32.0-32.9, adult; Z86.73 Personal history of transient ischemic attack (TIA), and cerebral infarction without residual deficits; Z79.82 Long term (current) use of aspirin
CPT/HCPCS: 87426; 87804; 99213; G0463

== ENCOUNTER 2025-02-12 09:46 | Emergency (ER) | payer MEDICARE, SELFPAY ==
--- NOTE | 2025-02-12 09:48 | ED_ITS ---
HPI - General Adult General Chief complaint: Upper Respiratory Infection Stated complaint: Sore Throat,Cough,Congestion,Bloody Phlegm,Aches Time Seen by Provider: 02/12/25 09:48 Source: patient Mode of arrival: ambulatory Limitations: no limitations History of Present Illness HPI narrative: 74-year-old female patient presents to [facility] with complaints of cold symptoms for the past 6 days. Denies fevers that she is aware of but states has had some body aches and chills. Patient states she has had a lot of congestion, runny nose. Denies any ear pain but states has had a sore throat. Patient states she has had a slight cough but not coughing anything up denies chest pain, shortness of breath. Denies abdominal pain, nausea, vomiting or diarrhea. Patient states she has been taking some [id number] cold and flu medication that has not offered much relief. Related Data Home Medications ?Medication ?Instructions ?Recorded ?Confirmed ?Last Taken ?Type aspirin 81 mg tablet,delayed 81 mg PO DAILY 06/18/20 01/05/25 08/18/22 History release (Adult Aspirin Regimen) cetirizine 10 mg capsule 10 mg PO DAILY 06/18/20 01/05/25 Unknown History cranberry extract 500 mg capsule 500 mg PO DAILY 03/19/21 01/05/25 08/18/22 History (Cranberry Concentrate) oasis eye drops 1 ea EACH EYE BID 02/21/22 01/05/25 Unknown History acetaminophen 500 mg capsule 500 mg PO TID PRN Pain 02/24/22 01/05/25 Unknown History vit C 250 mg-vit E 90 mg-zinc 40 1 cap PO BID 02/24/22 01/05/25 08/18/22 History mg-copper 1 [id number] capsule (PreserVision AREDS-2) famotidine 20 mg tablet 20 mg PO BID 08/13/22 01/05/25 Unknown History vitamin C 45 mg-zinc citrate 3.75 1 tablet PO DAILY 08/13/22 01/05/25 08/18/22 History mg-elderberry 50 mg chewable tablet (Red's All natural) hydrocodone 5 mg-acetaminophen 325 1 tablet PO Q8H PRN Pain 04/22/23 01/05/25 Unknown History mg tablet docusate sodium 100 mg capsule 100 mg PO BID 06/01/23 01/05/25 Unknown History (Colace) Allergies Allergy/AdvReac Type Severity Reaction Status Date / Time codeine AdvReac Mild Nausea Verified 01/05/25 08:33 Review of Systems Review of Systems: CONSTITUTIONAL: Denies fever, Positive body aches am chills, denies sweats. EYES: Denies visual changes, redness, or discharge. ENT: positive rhinorrhea, congestion, sore throat, denies otalgia. CARDIOVASCULAR: Denies chest pain, palpitations, or edema. RESPIRATORY: positive mild cough denies dyspnea. GASTROINTESTINAL: Denies abdominal pain, nausea, vomiting, or diarrhea. GENITOURINARY: Denies dysuria or hematuria. SKIN: Denies rash or itching. MUSCULOSKELETAL: Denies back pain, joint pain, or myalgia. NEUROLOGIC: Denies headache, numbness, or weakness. PSYCHIATRIC: Denies anxiety or depression. [facility] Past Medical History Medical History Obesity (BMI 30-39.9) Hyperlipidemia History of adverse reaction to anesthesia Arthritis Kidney disease Vision abnormalities Asthma Chronic back pain Postmenopausal Seasonal allergies Hypertension Hypercholesteremia CVA (cerebral vascular accident) Surgical History Surgical History H/O Spinal surgery Bulging disc History of orthopedic surgery Right knee History of cholecystectomy H/O: hysterectomy Hx of tonsillectomy Family History Family History Grandparent Hypertension Father Family history of chronic obstructive pulmonary disease Malignant neoplasm of prostate Family history of emphysema Patient's father is Other Arthritis Blood clot in vein Cerebrovascular accident Social History Social History Smoking status: Never smoker Second hand tobacco smoke exposure: No Alcohol intake: current Alcohol use details: Occasional Substance use: never Do You Feel Safe in your Home?: Yes Lack of Transportation: No Lack of Food: Never True Current Housing: I Have Housing Concerned About Future Housing: No Difficulty Paying Gas/Electric Bills: No Difficulty Paying for Meds: No Currently Unemployed: No Education: Bachelor's Degree Difficulty w/ Childcare or Family Care: No Living arrangements: with family [facility] Gender identity (if verbalized by the patient): Female Spiritual care concerns: No Comments At the time of my signature I agree with nursing past medical history, surgical, social, and family history. There is no relevant family history pertinent to the presenting complaint. Exam Narrative: GENERAL: Well-appearing, well-nourished, and in no acute distress. HEAD: Normocephalic, atraumatic. EYES: PERRLA and EOMI. ENT: Nares with erythema edema noted bilaterally, no rhinorrhea or epistaxis. Mucous membranes moist. postnasal drip noted to the posterior pharynx no tonsillar enlargement, exudates or lesions present. Bilateral ear canals are very narrow the left TM is clear the right TM is unable to be visualized due to cerumen impaction. NECK: Supple. No lymphadenopathy CHEST: Clear to auscultation. No respiratory distress. HEART: Regular rate and rhythm. No murmur heard. Normal peripheral pulses. ABDOMEN: Soft, nontender, nondistended, normal active bowel sounds. EXTREMITIES: Normal range of motion. No edema. SKIN: Warm, dry, no rash. NEURO: No focal deficits. Alert and oriented x3. Course Course Level of Care: Express Care Visit Reevaluation(s) Reevaluation #1: re-evaluated patient notified her that her point of care swab testing is negative. Discussed with her that this is most likely a mild cold or mild virus causing her symptoms. We will discharge her home with a mild steroid and encouraged her to continue her Zyrtec and would also advise to start on a Flonase. Patient verbalized understanding denies any other questions or concerns at this time. Date: 02/12/25 Time: 10:23 Vital Signs Vital signs: Vital Signs Temperature 36.6 C 02/12/25 09:58 Pulse Rate 77 02/12/25 09:58 Respiratory Rate 16 02/12/25 09:58 Blood Pressure 176/77 H 02/12/25 09:58 Pulse Oximetry 100 02/12/25 09:58 Temperature 36.6 C 02/12/25 09:58 Pulse Rate 77 02/12/25 09:58 Respiratory Rate 16 02/12/25 09:58 Blood Pressure 176/77 H 02/12/25 09:58 Pulse Oximetry 100 02/12/25 09:58 Vital signs reviewed. The patient has been informed that they may have pre-hypertension or Hypertension based on a BP reading in the department. I recommend that the patient call the primary care provider listed on their discharge instructions or a physician of their choice this week to arrange follow up for further rajani luation of possible pre-hypertension or Hypertension Medical Decision Making MDM Narrative Medical decision making narrative: Plan of care for patient is to swab her today for influenza, COVID and strep to ensure she does not need any type of antibiotics for anything. Discussed with her that if this is negative most likely will treat her with some symptomatic relief. Patient verbalized understanding denies any other questions or concerns at this time. Differential Diagnosis Differential Diagnosis: Differential diagnosis: Allergic rhinitis, chronic sinusitis, tonsillitis, acute sinusitis, infectious mononucleosis, seasonal influenza, pertussis, diphtheria, meningococcal disease, viral syndrome, viral bronchitis, RSV, COVID- 19 Vital Signs Vital Signs: Vital Signs Temperature 36.6 C 02/12/25 09:58 Pulse Rate 77 02/12/25 09:58 Respiratory Rate 16 02/12/25 09:58 Blood Pressure 176/77 H 02/12/25 09:58 Pulse Oximetry 100 02/12/25 09:58 Temperature 36.6 C 02/12/25 09:58 Pulse Rate 77 02/12/25 09:58 Respiratory Rate 16 02/12/25 09:58 Blood Pressure 176/77 H 02/12/25 09:58 Pulse Oximetry 100 02/12/25 09:58 Critical Care Time Critical Care Time Critical Care Time: No Discharge Plan Discharge Clinical Impression: Viral URI Patient Disposition: Home Condition: Stable Instructions: Antibiotic Form, Viral Syndrome (ED) Additional Instructions: Viral illness may last between 7-12days; antibiotic is NOT recommended at this time. Recommend antihistamine such as Benadryl at night time and Claritin/Zyrtec/Laura during the day Cough syrup may cause drowsiness; avoid driving or take it at night time. Also, recommend symptomatic treatment includes: rest, fluids, and increase humidity of the air at home. Recommend Acetaminophen or nonsteroidal anti-inflammatory agents (NSAIDs) as directed in the bottle to reduce fever and/pain/headache. Avoid smoking/second-hand smoke. Limit visits to areas with large crowds. Please schedule a follow-up visit with your personal physician for further evaluation and treatment within 3-5days. Including recheck and discussion of your blood pressure. If your symptoms persist, change or worsen significantly before you can contact your personal physician then please, without delay, go to the emergency department for further evaluation. Patient Language: Welsh Prescriptions: New methylprednisolone 4 mg tablets,dose pack See Rx Instructions PO .COMPLEX Qty: 21 0RF Rx Instructions: for 6 days No Action fluticasone propionate [Flonase Allergy Relief] 50 mcg/actuation spray,suspension 1 spray NASAL DAILY Qty: 18.2 0RF Rx Instructions: administer into each nostril takes at hs acetaminophen 500 mg Capsule 500 mg PO TID PRN (Reason: Pain) PreserVision AREDS-2 250-90-40-1 mg Capsule 1 cap PO BID oasis eye drops 1 ea EACH EYE BID aspirin [Adult Aspirin Regimen] 81 mg tablet,delayed release (DR/EC) 81 mg PO DAILY cetirizine 10 mg capsule 10 mg PO DAILY cranberry extract [Cranberry Concentrate] 500 mg capsule 500 mg PO DAILY Rx Instructions: administer with meals hydrocodone-acetaminophen 5-325 mg tablet 1 tablet PO Q8H PRN (Reason: Pain) famotidine 20 mg Tablet 20 mg PO BID [facility] 45-3.75-50 mg Tablet,Chewable 1 tablet PO DAILY docusate sodium [Colace] 100 mg Capsule 100 mg PO BID albuterol sulfate [Ventolin HFA] 90 mcg/actuation HFA aerosol inhaler 2 puff INHALATION QID PRN (Reason: shortness of breath or wheezing) Qty: 8.5 1RF Symbicort 160-4.5 mcg/actuation HFA aerosol inhaler 2 puff INHALATION Q12H Qty: 10.2 0RF atorvastatin 10 mg tablet 10 mg PO DAILY Qty: 90 3RF amlodipine 5 mg tablet 5 mg PO DAILY Qty: 90 3RF Rx Instructions: TAKES IN AM lisinopril-hydrochlorothiazide 20-12.5 mg tablet 1 tablet PO DAILY Qty: 90 2RF Follow-up/Referrals: Philly,Michele Do PA-C [Primary Care Provider] - Time of Disposition: 10:23
[2025-02-12 09:58] VITALS: BP 176/77; PULSE 77; RESP 16; TEMP 36.6; O2SAT 100
[2025-02-12 10:27] LABS: EDCOVIDSCREEN Negative (Negative); EDINFLUASCREEN Negative (Negative); EDINFLUBSCREEN Negative (Negative); EDSTREPNEGPOS1 Negative (Negative)
== END 2025-02-12 10:25 | disposition home or self-care (01) ==
PROVIDERS: Emergency Provider Nurse Practitioner Family; PCP Physician Assistant
DX: J06.9 Acute upper respiratory infection, unspecified (principal); Z20.822 Contact with and (suspected) exposure to COVID-19; I10 Essential (primary) hypertension; E78.00 Pure hypercholesterolemia, unspecified; J45.909 Unspecified asthma, uncomplicated; M19.90 Unspecified osteoarthritis, unspecified site; E66.9 Obesity, unspecified; Z68.35 Body mass index [BMI] 35.0-35.9, adult; Z86.73 Personal history of transient ischemic attack (TIA), and cerebral infarction without residual deficits; Z79.82 Long term (current) use of aspirin
CPT/HCPCS: 87081; 87426; 87804; 87880; 99213; G0463